=== PATIENT | male | born 1950 | race Caucasian/White ===

== ENCOUNTER 2017-07-11 04:06 | Observation (INO) | payer MEDICARE, OTHER ==
[2017-07-11] MEDS ORDERED: ASPIRIN CHEW 81 MG TABLET PO STA (04:19)
[2017-07-11 04:32] LABS: BASOPHILS % (AUTO) 0.4 %; EOSINOPHILS # (AUTO) 0.2 10^3/uL (0.0-0.7); EOSINOPHILS % (AUTO) 1.6 %; HGB - HEMOGLOBIN 14.3 g/dL (14.0-18.0); LYMPHOCYTES # (AUTO) 2.2 10^3/uL (1.5-3.5); LYMPHOCYTES % (AUTO) 21.5 %; MEAN CORPUSCULAR HEMOGLOBIN 32.6 pg (27.0-31.0); MEAN CORPUSCULAR HGB CONC 34.7 g/dL (32.0-36.0); MEAN CORPUSCULAR VOLUME 94.1 fL (80.0-94.0); MEAN PLATELET VOLUME 8.1 fL (7.4-11.4); MONOCYTES # (AUTO) 0.9 10^3/uL (0.0-1.0); MONOCYTES % (AUTO) 8.3 %; NEUTROPHILS # (AUTO) 7.1 10^3/uL (1.5-6.6); NEUTROPHILS % (AUTO) 68.2 %; PLT - PLATELET COUNT 228 10^3/uL (130-450); RED BLOOD COUNT 4.38 10^6/uL (4.70-6.10); RED CELL DISTRIBUTION WIDTH 13.8 % (12.0-15.0); WHITE BLOOD COUNT 10.3 x10^3/uL (4.8-10.8)
[2017-07-11] MEDS ORDERED: NITROGLYCERIN SL 0.4 MG TABLET SL STA (04:40)
[2017-07-11 04:41] LABS: ALBUMIN/GLOBULIN RATIO 1.4 (1.0-2.2); BILIRUBIN,TOTAL 0.3 mg/dL (0.2-1.0); CALCIUM 8.9 mg/dL (8.5-10.3); CREATININE 0.8 mg/dL (0.6-1.2); TOTAL PROTEIN 6.8 g/dL (6.7-8.2)
[2017-07-11] MEDS ORDERED: ASPIRIN CHEW 81 MG TABLET ONE (04:41)
[2017-07-11] MEDS ORDERED: NITROGLYCERIN SL 0.4 MG TABLET SL ONE ×2 (04:47)
--- NOTE | 2017-07-11 04:47 | XRAY Preliminary Report ---
Exam: XR CHEST 2 VIEW PA/LAT IMPRESSION: 1. No acute abnormality seen in the chest. [facility] SITE ID: [id number]
--- NOTE | 2017-07-11 04:50 | XRAY Report ---
EXAM: CHEST RADIOGRAPHY EXAM DATE: 07/11/2017 04:37 AM. CLINICAL HISTORY: Chest pain . COMPARISON: None. TECHNIQUE: 2 views. FINDINGS: Lungs/Pleura: No alveolar consolidation or pleural effusion. No pneumothorax. Mediastinum: Heart and mediastinal contours are unremarkable. Other: None. IMPRESSION: 1. No acute abnormality seen in the chest. [facility] Referring Provider Line: [phone] SITE ID: [id number]
--- NOTE | 2017-07-11 05:01 | ED Physician Documentation ---
PD HPI CHEST PAIN - Stated complaint Stated Complaint: CHEST PAIN - Chief complaint Chief Complaint: Cardiac - History obtained from History obtained from: Patient (pt states that he woke from sleep at approx 0200 today with retrosternal chest pressure radiating to his neck, some pain with a deep breath,, sweating, nausea. he took some baby ASA prior to arrival in the ER. is a type 1 diabetic. states he had a cardiac cath 3 years ago and wsa told it was normal. staes that at the time of my evaluation he did have some reduction in his symptoms but was not gone.) Review of Systems Constitutional: denies: Fever, Chills Nose: denies: Sinus pressure / pain Throat: denies: Sore throat Cardiac: reports: Chest pain / pressure. denies: Palpitations, Pedal edema, Calf pain Respiratory: denies: Dyspnea, Cough, Hemoptysis GI: denies: Abdominal Pain, Nausea, Vomiting, Constipation, Diarrhea : denies: Dysuria Musculoskeletal: reports: Neck pain. denies: Back pain, Extremity swelling Neurologic: denies: Generalized weakness, Confused, Headache, LOC PD PAST MEDICAL HISTORY - Past Medical History Past Medical History: Yes Endocrine/Autoimmune: Type 1 diabetes Other Past Medical History: Prostate CA; NOORVIK - Past Surgical History Past Surgical History: Yes Ortho: Knee replacement, Carpal Tunnel surgery - Present Medications Home Medications: Ambulatory Orders Medication Instructions Recorded Confirmed Amlodipine Besylate [Norvasc] 2.5 mg PO DAILY 07/11/17 07/11/17 Atorvastatin Calcium 1 tab PO DAILY 07/11/17 07/11/17 Dextroamphetamine/Amphetamine 1 tab PO DAILY 07/11/17 07/11/17 [Dextroamp-Amphet ER 10 mg Cap] Dextroamphetamine/Amphetamine 1 cap PO DAILY 07/11/17 07/11/17 [Dextroamp-Amphet ER 5 mg Cap] Insulin Lispro [Humalog] 07/11/17 Lisinopril 1 tab PO DAILY 07/11/17 07/11/17 Zolpidem Tartrate [Ambien] 1 tab PO QPM 07/11/17 07/11/17 - Allergies Allergies/Adverse Reactions: Allergies Allergy/AdvReac Type Severity Reaction Status Date / Time No Known Drug Allergies Allergy Verified 07/11/17 04:33 - Social History Does the pt smoke?: No Smoking Status: Never smoker Does the pt drink ETOH?: Yes Does the pt have substance abuse?: No - Immunizations Immunizations are current?: Yes - POLST Patient has POLST: No PD ED PE NORMAL - Vitals Vital signs reviewed: Yes - General General: Alert and oriented X 3, No acute distress, Well developed/nourished - HEENT HEENT: Atraumatic, Moist mucous membranes, Pharynx benign - Cardiac Cardiac: No murmur. No: RRR (bradycardic but regular) - Respiratory Respiratory: No respiratory distress, Clear bilaterally - Abdomen Abdomen: Soft, Non tender, Non distended - Derm Derm: Normal color, Warm and dry, No rash - Extremities Extremities: No deformity, No edema, No calf tenderness / cord - Neuro Neuro: Alert and oriented X 3 Eye Opening: Spontaneous Motor: Obeys Commands Verbal: Oriented GCS Score: 15 - Psych Psych: Normal mood, Normal affect Results - Vitals Vitals: Vital Signs - 24 hr 07/11/17 07/11/17 07/11/17 04:11 04:12 04:25 Temperature 35.9 C L Heart Rate 52 L 54 L Respiratory 16 12 Rate Blood Pressure 129/79 119/61 Blood Pressure 133/67 H [Left] Blood Pressure 127/68 [Right] O2 Saturation 98 99 07/11/17 07/11/17 07/11/17 04:37 04:43 04:49 Temperature Heart Rate 53 L 56 L 59 L Respiratory 12 14 17 Rate Blood Pressure 133/67 H 127/68 110/56 L Blood Pressure [Left] Blood Pressure [Right] O2 Saturation 100 100 98 07/11/17 04:55 Temperature Heart Rate 70 Respiratory 14 Rate Blood Pressure 122/61 Blood Pressure [Left] Blood Pressure [Right] O2 Saturation 98 Oxygen O2 Source Room air - EKG (time done) 0411 Rate: Rate (enter#) Rhythm: Sinus bradycardia [place]: Normal Intervals: Normal MS, QRS normal QRS: Normal Ischemia: Non specific changes - Labs Labs: Laboratory Tests 07/11/17 07/11/17 07/11/17 04:15 04:15 04:15 WBC 10.3 RBC 4.38 L Hgb 14.3 Hct 41.2 L MCV 94.1 H MCH 32.6 H MCHC 34.7 RDW 13.8 Plt Count 228 MPV 8.1 Neut # 7.1 H Lymph # 2.2 [place] # 0.9 Eos # 0.2 Baso # 0.0 Absolute Nucleated RBC 0.00 Nucleated RBC % 0.0 Sodium 139 Potassium 3.7 Chloride 100 L Carbon Dioxide 30 Anion Gap 9.0 BUN 22 H Creatinine 0.8 Estimated GFR (MDRD) 97 Glucose 133 H POC Whole Bld Glucose Calcium 8.9 Total Bilirubin 0.3 AST 27 ALT 35 Alkaline Phosphatase 39 L Troponin I < 0.04 Total Protein 6.8 Albumin 4.0 Globulin 2.8 Albumin/Globulin Ratio 1.4 Lipase 33 07/11/17 04:21 WBC RBC Hgb Hct MCV MCH MCHC RDW Plt Count MPV Neut # Lymph # [place] # Eos # Baso # Absolute Nucleated RBC Nucleated RBC % Sodium Potassium Chloride Carbon Dioxide Anion Gap BUN Creatinine Estimated GFR (MDRD) Glucose POC Whole Bld Glucose 126 H Calcium Total Bilirubin AST ALT Alkaline Phosphatase Troponin I Total Protein Albumin Globulin Albumin/Globulin Ratio Lipase - Rads (name of study) CXR Radiology: Final report received (No acute disease), EMP read contemporaneously PD MEDICAL DECISION MAKING - ED course Complexity details: reviewed results, re-evaluated patient, considered differential, d/w patient ED course: pt is a type 1 diabetic with chest pressure that is somewhat resolved with nitro. normal BP. has slight ST elevations in V1 Avl and V5, V6 but does not meet STEMi criteria. no t wave inversions. Pain somewhat relieved with nitro. CXR neg. secondary to his concerning presenting symptoms and DM history will admit to observation for further trending and testing. informed pt of the plan and he agrees. Departure - Departure Disposition: ED Place in Observation Clinical Impression: Chest pain, DM (diabetes mellitus) Condition: Stable
[2017-07-11] MEDS ORDERED: IBUPROFEN 400 MG TABLET PO PRN (05:25)
[2017-07-11] MEDS ORDERED: PROCHLORPERAZINE 10 MG/2 ML VIAL IVP PRN (05:25)
[2017-07-11] MEDS ORDERED: SODIUM CHLORIDE FLUSH 0.9% 10 ML SYRINGE IVP PRN (05:25)
[2017-07-11] MEDS ORDERED: NITROGLYCERIN SL 0.4 MG TABLET SL PRN (05:30)
--- NOTE | 2017-07-11 05:39 | HISTORY & PHYSICAL EXAMINATION ---
Chief Complaint - Chief Complaint Chief Complaint: Chest Pressure/fullness History of Present Illness - Admitted From Admitted From:: Home - History of Present Illness HPI Comment/Other: Mr. Evan Bailon is a 66-year-old male with a history of Insulin-dependent diabetes, hypertension, and hypercholesterolemia. He woke up at 2 AM this morning with chest fullness and pressure but no pain. After about an hour he decided to come into the [facility] emergency department for evaluation and treatment. He denies any chest pain, diaphoresis, or radiation at this time. History - Past Medical History Cardiovascular: reports: Hypertension, High cholesterol Respiratory: reports: None Neuro: reports: None Endocrine/Autoimmune: reports: Type 1 diabetes GI: reports: None [employer]: reports: None : reports: Other (History of prostate cancer, status post prostatectomy) HEENT: reports: Chronic hearing loss Psych: reports: ADD/ADHD Musculoskeletal: reports: None Derm: reports: None MRSA Hx?: No Other Past Medical History: Prostate CA; KALTAG - Past Surgical History Ortho: reports: Knee replacement, Carpal Tunnel surgery Other past surgical history: Status post prostatectomy - Family & Social History Family History: Mother: , CAD, Hyperlipidemia, Hypertension, Father: , CAD, Hyperlipidemia, Hypertension, Sister: Alive and Well, Cancer ( breast), Diabetes, Type 1 Living arrangement: At home Living Situation: With spouse/s.o. - Substance History Use: Uses substance without health or social issues: Alcohol Abuse: Recurrent use of substance despite neg consequences: NONE - POLST Patient has POLST: No POLST Status: Full Code (Patient quit smoking 20 years ago) Meds/Allgy - Home Medications Home Medications: Ambulatory Orders Medication Instructions Recorded Confirmed Amlodipine Besylate [Norvasc] 2.5 mg PO DAILY 07/11/17 07/11/17 Atorvastatin Calcium 1 tab PO DAILY 07/11/17 07/11/17 Dextroamphetamine/Amphetamine 1 tab PO DAILY 07/11/17 07/11/17 [Dextroamp-Amphet ER 10 mg Cap] Dextroamphetamine/Amphetamine 1 cap PO DAILY 07/11/17 07/11/17 [Dextroamp-Amphet ER 5 mg Cap] Insulin Lispro [Humalog] 07/11/17 Lisinopril 1 tab PO DAILY 07/11/17 07/11/17 Zolpidem Tartrate [Ambien] 1 tab PO QPM 07/11/17 07/11/17 - Allergies Allergies/Adverse Reactions: Allergies Allergy/AdvReac Type Severity Reaction Status Date / Time No Known Drug Allergies Allergy Verified 07/11/17 04:33 Review of Systems - Constitutional Constitutional: denies: Fatigue, Fever, Chills, Weakness - Eyes Eyes: denies: Pain, Irritation, Blurred vision - Ears, Nose & Throat Ears, Nose & Throat: denies: Ear pain, Hearing loss, Hearing aids, Tinnitus, Vertigo, Nasal discharge, Nosebleeds - Cardiovascular Cariovascular: reports: Other (Chest pressure, chest fullness). denies: Palpitations, Chest pain, Edema - Respiratory Respiratory: denies: Cough, Sputum production, Wheezing, Snoring - Gastrointestinal Gastrointestinal: denies: Abdominal pain, Abdominal distention, Constipation, Diarrhea, Change in bowel habits, Rectal bleeding - Genitourinary Genitourinary: denies: Dysuria, Frequency, Urgency, Hematuria - Musculoskeletal Musculoskeletal: denies: Muscle pain, Back pain, Muscle aches, Stiffness, Joint pain - Integumentary Integumentary: denies: Rash, Pruritis, Lesions, Dryness - Neurological Neurological: denies: General weakness, Headache, Dizziness, Numbness - Psychiatric Psychiatric: denies: Depression, Anxiety, Hallucinations - Endocrine Endocrine: denies: Polyuria, Polydypsia, Polyphagia - Hematologic/Lymphatic Hematologic/Lymphatic: denies: Anemia, Bruising, Petechiae, Lymphadenopathy - All Other Systems All Other Systems: reports: Reviewed and negative Exam - Vital Signs Reviewed Vital Signs: Yes Vital Signs: Vital Signs x48h Temp Pulse Resp BP BP BP Pulse Ox 07/11/17 05:14 66 16 114/60 99 07/11/17 05:05 62 12 114/60 98 07/11/17 05:00 61 14 115/60 100 07/11/17 04:55 70 14 122/61 98 07/11/17 04:49 59 L 17 110/56 L 98 07/11/17 04:43 56 L 14 127/68 100 07/11/17 04:37 53 L 12 133/67 H 100 07/11/17 04:25 54 L 12 119/61 99 07/11/17 04:12 133/67 H 127/68 12/27/17 04:11 35.9 C L 52 L 16 129/79 98 - Physical Exam General Appearance: positive: No acute distress, Alert, Anxious Eyes Bilateral: positive: Normal inspection, PERRL, EOMI, Conjunctivae nml, No scleral icterus ENT: positive: ENT inspection nml, Pharynx nml, No signs of dehydration. negative: Oral lesions Neck: positive: Nml inspection, Thyroid nml, No JVD, Trachea midline. negative : Thyromegaly Respiratory: positive: Chest non-tender, No respiratory distress, Breath sounds nml. negative: Wheezes, Rales, Rhonchi Cardiovascular: positive: Regular rate & rhythm, No murmur, No gallop. negative : Systolic murmur, Diastolic murmur Peripheral Pulses: positive: 1+ Abdomen: positive: Non-tender, No organomegaly, Nml bowel sounds, No distention Back: positive: Nml inspection. negative: CVA tenderness (R), CVA tenderness (L ) Skin: positive: Color nml, No rash, Warm, Dry. negative: Cyanosis Extremities: positive: Non-tender, Full ROM, Nml appearance, No pedal edema Neurologic/Psychiatric: positive: Oriented x3, CN's nml (2-12), Motor nml, Sensation nml, Mood/affect nml Conclusion/Plan - Problem List (1) DM (diabetes mellitus) Conclusion/Plan: We will continue the patient on his home insulin regimen with sliding scale coverage. Qualifiers: Diabetes mellitus type: type 1 Diabetes mellitus complication status: without complication Qualified Code(s): E10.9 - Type 1 diabetes mellitus without complications (2) Chest pain Conclusion/Plan: Patient denies any true pain and says he has had "pressure and fullness". We will continue the next 2 sets of serial troponins, first set was negative.Will administer nitrates as needed for the chest pressure. We will consider stress testing. Qualifiers: Chest pain type: other chest pain Qualified Code(s): R07.89 - Other chest pain; R07.8 - Other chest pain - Lab Results Lab results reviewed: Yes Fish Bones: 07/11/17 04:15 07/11/17 04:15 - EKG Results EKG Interpreted Independently: Yes EKG Comparison: No prior EKG EKG Findings: Questionable inferior wall ischemia Issues/Core Measures - Anticipated LOS Anticipated Stay Length: Less than 2 midnights - [facility] Requirement for [facility] I expect patient to be DC'd or transferred within 96 hours.: Yes - DVT/VTE - Prophylaxis VTE/DVT Device ordered at admit?: Yes - AMI - Statin at Admit Aspirin Prescribed on Admit: Yes
[2017-07-11] MEDS: SODIUM CHLORIDE FLUSH 0.9% 10 ML SYRINGE IVP SCH ×3 (06:37→21:14)
[2017-07-11 07:03] LABS: CALCIUM 8.7 mg/dL (8.5-10.3); CREATININE 0.9 mg/dL (0.6-1.2)
[2017-07-11 07:11] LABS: CHOL/HDL RATIO 2.2 (<5.0); CHOLESTEROL 140 mg/dL; HDL CHOLESTEROL 64 mg/dL; LDL CHOLESTEROL,CALCULATED 68 mg/dL; LDL/HDL RATIO 1.1 (<3.6); VLDL CHOLESTEROL 8 mg/dL
[2017-07-11] MEDS: amLODIPine 5 MG TABLET PO SCH (08:42)
[2017-07-11] MEDS: ATORVASTATIN 40 MG TABLET PO SCH (08:42)
[2017-07-11] MEDS: ASPIRIN CHEW 81 MG TABLET PO SCH (08:42)
[2017-07-11] MEDS: POLYETHYLENE GLYCOL 3350 17 GM PACKET PO SCH (08:43)
[2017-07-11] MEDS: LISINOPRIL 20 MG TABLET PO SCH (08:43)
[2017-07-11] MEDS ORDERED: DEXTROAMPHETAMINE PO SCH ×2 (09:00)
[2017-07-11] MEDS ORDERED: AMPHETAMINE PO SCH ×2 (09:00)
[2017-07-11] MEDS ORDERED: INSULIN LISPRO 100 UNIT/1 ML 10 ML MDV SUBQ SCH ×2 (11:00→13:00)
--- NOTE | 2017-07-11 19:05 | PROVIDER PROGRESS NOTE ---
Hospitalist Cross-cover Note - Cross-Cover Note Cross-Cover Note: I examined the patient and reviewed all of his test results with him and his fiance at bedside today. Vital signs stable. The exam is unremarkable with no audible ectopy or heart murmur, chest clear, no rub is heard. Troponins are not detectable 3. Telemetry shows sinus rhythm with frequent unifocal PVCs. The patient repeated his symptoms for me: He gets skips and jumps in his rhythm and then associated chest pressure that starts in the anterior chest and rises to his neck.Taking a deep breath produces a "catch" in the inspiration. These symptoms have been coming and going all day.He then states that he has had these symptoms for 10 years and they have come and gone, but are most noticeable when he is "under stress". He is currently under stress. He is not sure if sitting upright improves the symptoms but he does note that they are worse after eating especially after a late meal and they are not present when he is active such as walking or doing aerobic activities. 3 years ago the patient underwent a coronary angiogram and this was within normal limits.Prior to that he had a Holter monitor which showed "funky beats" and he was never told his diagnosis. Imp/Dx: 1) Atypical chest pain for angina given that it is only associated with ectopy, never occurs with aerobic exercise and he has had a normal coronary angiogram just 3 years ago 2) Palpitations which correlate with PVCs on telemetry. 3) DM on Insulin 4) ADHD 5) HTN on treatment. 6) Hyperlipidemia on treatment with good control. Plan: Obtain an echocardiogram to rule out pericarditis given that his symptoms occur in a supine position. Start a beta-suzanne for suppression of his very symptomatic PVCs and continue to observe on Telemetry. Start an H2 suzanne/PPI since the chest pressure and "catch" could also be GERD. Patient is agreeable to this plan
[2017-07-11] MEDS ORDERED: METOPROLOL SUCCINATE 25 MG TABLET PO SCH (21:00)
[2017-07-11] MEDS: FAMOTIDINE 20 MG TABLET PO SCH (21:14)
[2017-07-12] MEDS: SODIUM CHLORIDE FLUSH 0.9% 10 ML SYRINGE IVP SCH (05:04)
[2017-07-12 07:01] LABS: THYROID STIMULATING HORMONE 1.24 uIU/mL (0.34-5.60)
[2017-07-12 07:03] LABS: FREE T4 (FREE THYROXINE) 0.77 ng/dL (0.58-1.64)
[2017-07-12] MEDS: ATORVASTATIN 40 MG TABLET PO SCH (08:53)
[2017-07-12] MEDS: amLODIPine 5 MG TABLET PO SCH (08:53)
[2017-07-12] MEDS: LISINOPRIL 20 MG TABLET PO SCH (08:53)
[2017-07-12] MEDS: POLYETHYLENE GLYCOL 3350 17 GM PACKET PO SCH (08:54)
[2017-07-12] MEDS: FAMOTIDINE 20 MG TABLET PO SCH (08:54)
[2017-07-12] MEDS: ASPIRIN CHEW 81 MG TABLET PO SCH (08:54)
--- NOTE | 2017-07-12 09:29 | Discharge Plan ---
Discharge Plan Disposition: Home, Self Care Condition: Fair Prescriptions: Metoprolol Succinate [Toprol Xl] 12.5 mg PO DAILY #30 tablet Diet: Diabetic Activity Restrictions: No Restrictions Shower Restrictions: No Driving Restrictions: No Instruction Topics: Heart Palpitations Additional Instructions or Follow Up instructions: Resume all your medications. Start taking new Toprol XL at dinnertime. See your PCP or Automotive Engineering Technician for follow-up and further management of these symptoms. Have a Happy New Year! No Smoking: If you smoke, Please STOP! Call for help. Follow-up with: Sarah Guevara MD [Primary Care Provider] -
[2017-07-12 10:37] VITALS: BP 136/65
--- NOTE | 2017-07-17 09:21 | DISCHARGE SUMMARY ---
DATE OF SERVICE: 07/12/2017 Physician: Francie Jones MD HISTORY OF PRESENT ILLNESS: This is a 66-year-old white male with history of insulin-dependent diabetes, hypertension, hyperlipidemia, with a history of palpitations. He was told that he has "funky beats" but he was never told his actual medical diagnosis regarding his palpitations. The patient presented with worsening palpitations associated with chest pressure in the supine position and no other associated symptoms. He was placed in observation for a rule out protocol. HOSPITAL COURSE AND DISCHARGE DIAGNOSES 1. Atypical chest pain. The patient had troponins that were normal x3. He described that his episodes of chest pressure lasted very briefly and were only associated with his other symptoms of ectopy, and that they never occurred with aerobic exercise. The patient does compete in table tennis without any complaints of chest pain or shortness of breath. The patient describes having a coronary angiogram 3 years ago because of symptoms such as this and was told that he had completely normal coronary arteries. This description was atypical for angina and the plan was to correlate his complaints of palpitations with his rhythm and treat the dysrhythmia for improvement of his chest discomfort. 2. Palpitations. The patient stated that he was having these coming and going during the entire day that he was here and did not call his nurse. He states that they have been more noticeable when he is "under stress" which he is currently under. They do improve by sitting upright, and it may be worse after eating something, especially a late meal before bed. Review of telemetry showed frequent unifocal PVCs that were occurring about 6 per minute. He was started on a beta-suzanne and overnight these decreased approximately 50% to 75%, and he did in fact notice that there were no significant episodes of "palpitations" or chest pressure overnight. He was therefore discharged on his new beta-suzanne and recommended to have followup with his financial coordinator. The patient had an echocardiogram while here that showed mild LVH , EF of 55% to 60% with grade 1 diastolic dysfunction, normal RV size and function, normal atrial sizes, normal valvular function. 3. Premature ventricular contractions. Labs showed normal potassium 3.8, normal troponins x3, normal T4, T3, and TSH. 4. Diabetes. The patient was maintained on his diabetic diet and medications throughout this course. 5. Attention deficit hyperactivity disorder by history. The patient was maintained on his medication during this course without any trouble. LABORATORY AND IMAGING: Reviewed and summarized above. ALLERGIES: NONE. MEDICATIONS AT THE TIME OF DISCHARGE 1. Amlodipine 2.5 mg daily. 2. Lipitor 80 mg q.p.m. 2. Dextromethorphan 10 mg p.o. b.i.d. 3. Zenzedi 15 mg p.o. daily. 4. Insulin Humalog via insulin pump that he adjusts on his own. 5. Lisinopril 40 mg p.o. daily. 6. Toprol-XL 12.5 mg p.o. at dinnertime (new prescription medication). 7. Ambien at bedtime p.r.n. STATUS AT THE TIME OF DISCHARGE: Stable. PHYSICAL EXAMINATION VITAL SIGNS: Blood pressure 136/65, pulse of 64 in sinus rhythm, afebrile, oxygen saturation 98%. HEENT: Unremarkable. NECK: No JVD or carotid bruits. CHEST: Clear. HEART: Sounds normal. No murmur. ABDOMEN: Soft. EXTREMITIES: Without edema. NEUROLOGIC: Intact. FOLLOWUP: With his financial coordinator and PCP. CODE STATUS: FULL CODE. TIME REQUIRED TO COMPLETE THIS ENTIRE DISCHARGE: 30 minutes. TD: 07/16/2017 17:14 [email or web address]
== END 2017-07-12 11:00 | disposition home or self-care (01) ==
LOC: ED 04:06 → OBS 05:25
PROVIDERS: ADMIT Hospitalist; ATTEND Internal Medicine
DX: R07.89 Other chest pain (principal); E10.9 Type 1 diabetes mellitus without complications; Z96.41 Presence of insulin pump (external) (internal); I11.9 Hypertensive heart disease without heart failure; I49.3 Ventricular premature depolarization; E78.5 Hyperlipidemia, unspecified; H91.90 Unspecified hearing loss, unspecified ear; F90.9 Attention-deficit hyperactivity disorder, unspecified type; Z85.46 Personal history of malignant neoplasm of prostate; Z90.79 Acquired absence of other genital organ(s); Z96.659 Presence of unspecified artificial knee joint; Z87.891 Personal history of nicotine dependence; R11.0 Nausea
CPT/HCPCS: 36415; 71020; 80048; 80053; 80061; 83690; 83880; 84439; 84443; 84481; 84484; 85025; 93005; 93306; 99284; 99285; A9270; G0378

== ENCOUNTER 2018-03-13 22:15 | Emergency (ER) | payer MEDICARE, BC ==
[2018-03-13 22:50] LABS: BASOPHILS % (AUTO) 0.4 %; EOSINOPHILS # (AUTO) 0.1 10^3/uL (0.0-0.7); EOSINOPHILS % (AUTO) 0.8 %; HGB - HEMOGLOBIN 13.9 g/dL (14.0-18.0); LYMPHOCYTES # (AUTO) 1.5 10^3/uL (1.5-3.5); MEAN CORPUSCULAR HEMOGLOBIN 32.8 pg (27.0-31.0); MEAN CORPUSCULAR VOLUME 96.5 fL (80.0-94.0); MEAN PLATELET VOLUME 7.9 fL (7.4-11.4); MONOCYTES # (AUTO) 0.4 10^3/uL (0.0-1.0); MONOCYTES % (AUTO) 5.3 %; NEUTROPHILS # (AUTO) 6.4 10^3/uL (1.5-6.6); NEUTROPHILS % (AUTO) 75.5 %; PLT - PLATELET COUNT 211 10^3/uL (130-450); RED BLOOD COUNT 4.23 10^6/uL (4.70-6.10); RED CELL DISTRIBUTION WIDTH 13.8 % (12.0-15.0); WHITE BLOOD COUNT 8.5 x10^3/uL (4.8-10.8)
[2018-03-13 23:06] LABS: ALBUMIN 3.9 g/dL (3.2-5.5); ALBUMIN/GLOBULIN RATIO 1.3 (1.0-2.2); BILIRUBIN,TOTAL 0.7 mg/dL (0.2-1.0); CALCIUM 8.8 mg/dL (8.5-10.3); TOTAL PROTEIN 6.8 g/dL (6.7-8.2)
[2018-03-13 23:21] LABS: BILIRUBIN,URINE NEGATIVE (NEGATIVE); GLUCOSE, URINE (UA) NEGATIVE (NEGATIVE); KETONES,URINE (UA) TRACE mg/dL (NEGATIVE); LEUKOCYTE ESTERASE, URINE NEGATIVE (NEGATIVE); NITRITE,URINE NEGATIVE (NEGATIVE); OCCULT BLOOD,URINE NEGATIVE (NEGATIVE); PROTEIN,URINE NEGATIVE (NEGATIVE); UROBILINOGEN,URINE 0.2 (NORMAL) E.U./dL (NORMAL)
[2018-03-13 23:22] LABS: CLARITY,URINE CLEAR (CLEAR)
[2018-03-14] MEDS ORDERED: ONDANSETRON ODT 4 MG TABLET TL STA (00:28)
[2018-03-14] MEDS ORDERED: LIDOCAINE VISCOUS 2% 15 ML UDC MM STA ×2 (00:28→02:05)
[2018-03-14] MEDS ORDERED: MAG HYDROX/AL HYDROX/SIMETH 30 ML UDC PO STA (00:43)
[2018-03-14 00:48] VITALS: BP 157/60
--- NOTE | 2018-03-14 01:13 | ED Physician Documentation ---
PD HPI ABD PAIN - Stated complaint Stated Complaint: ABD PX - Chief complaint Chief Complaint: Abd Pain - History obtained from History obtained from: Patient, Family - History of Present Illness Timing - onset: Today Timing - details: Abrupt onset, Still present Quality: Sharp Location: Epigastric Associated symptoms: Nausea. No: Fever, Vomiting, Chest pain, Dizzy Similar symptoms before: No diagnosis Recently seen: Not recently seen - Additional information Additional information: Patient is a 67 year old male who is presenting to the emergency department for epigastric pain. patient states that the pain started about 5 hours ago. patient tried taking a riboxican on an empty stomach and subsequently developed epigastric burning with some radiation below his sternum. patient states that he tried taking pepcid and pepto bismol with little relief. 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 : None, Other HEENT: Chronic hearing loss Psych: ADD/ADHD Musculoskeletal: None Derm: None - Past Surgical History Past Surgical History: Yes Ortho: Knee replacement, Carpal Tunnel surgery - Present Medications Home Medications: Ambulatory Orders Medication Instructions Recorded Confirmed Amlodipine Besylate [Norvasc] 2.5 mg PO DAILY 07/11/17 07/11/17 Atorvastatin Calcium 80 mg PO QPM 07/11/17 07/11/17 Dextroamphetamine Sulfate 10 mg PO BID 07/11/17 07/11/17 [Dextroamphetamine Sulfate ER] Dextroamphetamine Sulfate [Zenzedi] 5 mg PO .AFTERNOON 07/11/17 07/11/17 Dextroamphetamine Sulfate [Zenzedi] 15 mg PO DAILY 07/11/17 07/11/17 Insulin Lispro [Humalog] 0 units SUBQ .INSULINPUMP 07/11/17 07/11/17 Lisinopril 40 mg PO DAILY 07/11/17 07/11/17 Zolpidem Tartrate [Ambien Cr] 6.25 mg PO QPM PRN 07/11/17 07/11/17 Lidocaine Viscous 2% [Xylocaine 5 ml MM Q4H #100 ml 03/14/18 Viscous 2%] - Allergies Allergies/Adverse Reactions: Allergies Allergy/AdvReac Type Severity Reaction Status Date / Time No Known Drug Allergies Allergy Verified 03/13/18 22:20 - Social History Does the pt smoke?: No Smoking Status: Former smoker Does the pt drink ETOH?: Yes Does the pt have substance abuse?: No - Immunizations Immunizations are current?: Yes - POLST Patient has POLST: No POLST Status: Full Code (Patient quit smoking 20 years ago) PD ED PE NORMAL - Vitals Vital signs reviewed: Yes - General General: Well developed/nourished - HEENT HEENT: Atraumatic - Neck Neck: No JVD - Cardiac Cardiac: No murmur - Respiratory Respiratory: No respiratory distress, Clear bilaterally - Abdomen Abdomen: Soft - Derm Derm: Normal color, Warm and dry - Extremities Extremities: No deformity, No edema - Neuro Neuro: Alert and oriented X 3, No motor deficit, Normal speech Eye Opening: Spontaneous PD ED PE EXPANDED - General General: Alert, In Pain - Cardiac Cardiac: [place] - Abdomen Abdomen: Tender to palpation, Epigastric Results - Vitals Vitals: Vital Signs - 24 hr 03/13/18 03/14/18 03/14/18 22:18 00:10 00:47 Temperature 35.4 C L Heart Rate 47 L 63 62 Respiratory 22 16 15 Rate Blood Pressure 177/67 H 149/46 H 157/60 H O2 Saturation 100 98 97 Oxygen O2 Source Room air - EKG (time done) 2231 Rate: Rate (enter#) (46) Rhythm: Sinus bradycardia [place]: Normal Intervals: Normal MI QRS: Normal Compare to prior EKG: Unchanged from prior EKG - Labs Labs: Laboratory Tests 03/13/18 03/13/18 03/13/18 22:23 22:47 22:47 WBC 8.5 RBC 4.23 L Hgb 13.9 L Hct 40.8 L MCV 96.5 H MCH 32.8 H MCHC 34.0 RDW 13.8 Plt Count 211 MPV 7.9 Neut # (Auto) 6.4 Lymph # (Auto) 1.5 [place] # (Auto) 0.4 Eos # (Auto) 0.1 Baso # (Auto) 0.0 Absolute Nucleated RBC 0.01 Nucleated RBC % 0.1 D-Dimer < 200.0 L Sodium 138 Potassium 4.0 Chloride 102 Carbon Dioxide 28 Anion Gap 8.0 BUN 22 H Creatinine 1.0 Estimated GFR (MDRD) 75 L Glucose 175 H Calcium 8.8 Total Bilirubin 0.7 AST 28 ALT 35 Alkaline Phosphatase 40 L Total Protein 6.8 Albumin 3.9 Globulin 2.9 Albumin/Globulin Ratio 1.3 Lipase 26 Urine Color Urine Clarity Urine pH Ur Specific [place] Urine Protein Urine Glucose (UA) Urine Ketones Urine Occult Blood Urine Nitrite Urine Bilirubin Urine Urobilinogen Ur Leukocyte Esterase Ur Microscopic Review Urine Culture Comments 03/13/18 23:16 WBC RBC Hgb Hct MCV MCH MCHC RDW Plt Count MPV Neut # (Auto) Lymph # (Auto) [place] # (Auto) Eos # (Auto) Baso # (Auto) Absolute Nucleated RBC Nucleated RBC % D-Dimer Sodium Potassium Chloride Carbon Dioxide Anion Gap BUN Creatinine Estimated GFR (MDRD) Glucose Calcium Total Bilirubin AST ALT Alkaline Phosphatase Total Protein Albumin Globulin Albumin/Globulin Ratio Lipase Urine Color YELLOW Urine Clarity CLEAR Urine pH 7.0 Ur Specific [place] 1.020 Urine Protein NEGATIVE Urine Glucose (UA) NEGATIVE Urine Ketones TRACE Urine Occult Blood NEGATIVE Urine Nitrite NEGATIVE Urine Bilirubin NEGATIVE Urine Urobilinogen 0.2 (NORMAL) Ur Leukocyte Esterase NEGATIVE Ur Microscopic Review NOT INDICATED Urine Culture Comments NOT INDICATED - Rads (name of study) chest x-ray Radiology: Final report received (normal) PD MEDICAL DECISION MAKING - ED course Complexity details: reviewed old records, reviewed results, re-evaluated patient , considered differential, d/w patient, d/w family ED course: Patient was seen and examined at bedside. blood work had already been performed as well as ekg. patient's ekg was unchanged compared to previous. patient was treated with maalox with viscous lidocaine. patient had a few episodes of bradycardia so chest x-ray and d-dimer were ordered to rule out dissection. those two tests were normal. Patient was given detailed discharge and follow up instructions and was stable for outpatient follow up. - Sepsis Event Vital Signs: Vital Signs - 24 hr 03/13/18 03/14/18 03/14/18 22:18 00:10 00:47 Temperature 35.4 C L Heart Rate 47 L 63 62 Respiratory 22 16 15 Rate Blood Pressure 177/67 H 149/46 H 157/60 H O2 Saturation 100 98 97 Oxygen O2 Source Room air Departure - Departure Disposition: 01 Home, Self Care Clinical Impression: Gastritis Condition: Good Instructions: ED Gastritis Follow-Up: Sarah Guevara MD [Primary Care Provider] - Prescriptions: Lidocaine Viscous 2% [Xylocaine Viscous 2%] 5 ml MM Q4H #100 ml Comments: Your diagnostics today were within normal limits. You should continue with the pepcid and maalox. you should avoid pills on an empty stomach. You should also avoid spicey foods, acidic foods, coffee and alcohol as they can exacerbate your symptoms. Your heart rate was a bit low at times on the monitor and you should follow up with your primary care doctor for possibly a holter monitor. You may return to the emergency department at any time for new , worsening or uncontrollable symptoms.
--- NOTE | 2018-03-14 01:44 | XRAY Report ---
Reason: epigastric pain Procedure Date: 03/14/2018 Accession Number: [id number] / [id number] Procedure: XR - Chest 1 View X-Ray CPT Code: 37281 FULL RESULT: EXAM: CHEST RADIOGRAPHY EXAM DATE: 03/14/2018 01:31 AM. CLINICAL HISTORY: Epigastric pain. COMPARISON: 07/11/2017. TECHNIQUE: 1 view. FINDINGS: Lungs/Pleura: No alveolar consolidation or pleural effusion seen. No pneumothorax. Mediastinum: Within exam limitations, the cardiomediastinal contour is normal. Other: None. IMPRESSION: 1. No acute abnormality seen in the chest. RADIA
== END 2018-03-14 02:15 | disposition home or self-care (01) ==
LOC: ED 22:15
DX: K29.70 Gastritis, unspecified, without bleeding (principal); R00.1 Bradycardia, unspecified; E10.9 Type 1 diabetes mellitus without complications; E78.00 Pure hypercholesterolemia, unspecified; I10 Essential (primary) hypertension; Z87.891 Personal history of nicotine dependence; Z96.659 Presence of unspecified artificial knee joint
CPT/HCPCS: 36415; 71045; 80053; 81003; 83690; 85025; 85379; 93005; 99283; 99284; A9270; Q0162; 81001; 87086

== ENCOUNTER 2018-03-14 15:41 | Outpatient (CLI) | payer MEDICARE, BC | END 2018-03-14 15:42 | disposition critical access hospital (66) | LOC: EMS 15:41 | PROVIDERS: ATTEND Surgery | DX: R10.9 Unspecified abdominal pain (principal) | CPT/HCPCS: A0425; A0429 ==

== ENCOUNTER 2018-03-14 16:15 | Emergency (ER) | payer MEDICARE, BC ==
--- NOTE | 2018-03-14 16:30 | ED Physician Documentation ---
History of Present Illness - Stated complaint Stated Complaint: ABD PX - Chief complaint Chief Complaint: Abd Pain - Additonal information Additional information: hx from pt 67 male awoke this AM with RLQ pain which has worsened throughout the day no fever no NVD no urinary sx s/p prostatectomy but no other surgery Review of Systems Constitutional: denies: Fever, Chills Cardiac: denies: Chest pain / pressure Respiratory: denies: Dyspnea GI: reports: Abdominal Pain. denies: Nausea, Vomiting, Diarrhea : denies: Dysuria Immunocompromised: denies: Immunocompromised PD PAST MEDICAL HISTORY - Past Medical History Cardiovascular: Hypertension, High cholesterol, Arrhythmia Respiratory: None Endocrine/Autoimmune: Type 1 diabetes GI: None GAMING WORKER: None : None, Other HEENT: Chronic hearing loss Psych: ADD/ADHD Musculoskeletal: None Derm: None - Past Surgical History Past Surgical History: Yes Ortho: Knee replacement, Carpal Tunnel surgery - Present Medications Home Medications: Ambulatory Orders Medication Instructions Recorded Confirmed Amlodipine Besylate [Norvasc] 2.5 mg PO DAILY 07/11/17 07/11/17 Atorvastatin Calcium 80 mg PO QPM 07/11/17 07/11/17 Dextroamphetamine Sulfate 10 mg PO BID 07/11/17 07/11/17 [Dextroamphetamine Sulfate ER] Dextroamphetamine Sulfate [Zenzedi] 5 mg PO .AFTERNOON 07/11/17 07/11/17 Dextroamphetamine Sulfate [Zenzedi] 15 mg PO DAILY 07/11/17 07/11/17 Insulin Lispro [Humalog] 0 units SUBQ .INSULINPUMP 07/11/17 07/11/17 Lisinopril 40 mg PO DAILY 07/11/17 07/11/17 Zolpidem Tartrate [Ambien Cr] 6.25 mg PO QPM PRN 07/11/17 07/11/17 Amox/Clav 875/125 [Augmentin] 1 each PO Q12H #20 tablet 03/14/18 Lidocaine Viscous 2% [Xylocaine 5 ml MM Q4H #100 ml 03/14/18 Viscous 2%] oxyCODONE [Roxicodone] 5 mg PO Q6H #10 tablet 03/14/18 - Allergies Allergies/Adverse Reactions: Allergies Allergy/AdvReac Type Severity Reaction Status Date / Time No Known Drug Allergies Allergy Verified 03/14/18 16:21 - Social History Does the pt smoke?: No Smoking Status: Former smoker Does the pt drink ETOH?: Yes Does the pt have substance abuse?: No - Immunizations Immunizations are current?: Yes - POLST Patient has POLST: No POLST Status: Full Code (Patient quit smoking 20 years ago) PD ED PE NORMAL - Vitals Vital signs reviewed: Yes - Neck Neck: Supple, no meningeal sign - Cardiac Cardiac: RRR - Respiratory Respiratory: No respiratory distress - Abdomen Abdomen: Soft, Other (TTP RLQ little higher and lateral to mcburneys with + rebound rovsing and heel tap) - Derm Derm: Normal color - Neuro Neuro: Alert and oriented X 3 Results - Vitals Vitals: Vital Signs - 24 hr 03/14/18 03/14/18 16:18 18:29 Temperature 37 C 37.2 C Heart Rate 69 69 Respiratory 20 16 Rate Blood Pressure 126/59 L 125/62 O2 Saturation 97 98 Oxygen O2 Source Room air - Labs Labs: Laboratory Tests 03/14/18 03/14/18 17:04 17:04 WBC 12.0 H RBC 4.39 L Hgb 14.5 Hct 42.3 MCV 96.2 H MCH 33.1 H MCHC 34.4 RDW 13.5 Plt Count 187 MPV 8.5 Neut # (Auto) 10.1 H Lymph # (Auto) 0.9 L [place] # (Auto) 0.9 Eos # (Auto) 0.0 Baso # (Auto) 0.0 Absolute Nucleated RBC 0.01 Nucleated RBC % 0.1 Sodium 133 L Potassium 4.3 Chloride 99 L Carbon Dioxide 25 Anion Gap 9.0 BUN 13 Creatinine 0.9 Estimated GFR (MDRD) 85 L Glucose 267 H Calcium 8.9 Total Bilirubin 1.3 H AST 23 ALT 32 Alkaline Phosphatase 38 L Total Protein 6.8 Albumin 3.9 Globulin 2.9 Albumin/Globulin Ratio 1.3 Lipase 20 L - Rads (name of study) CT AP Radiology: See rad report (nl appendix, GB appears distended with irrge wall concerning for acute juno, coorelate clincially consider sono, no biliary duct dilittaion, possible ileus but not SBO) PD MEDICAL DECISION MAKING - ED course ED course: no appy but possible acute juno on CT GB is quite low and lateral and would fit with clinical sx elev WBC and bili too this is the likely cause of sx pt is feeling better with ofirmev, no pain at rest now just with palp I explained finding with pt if pain can be controlled, he can tolerate PO, will dc with oral ab and fup gen surg clinic for sono and consideration of jnuo after infection resolved pt and OK with this plan - Sepsis Event Vital Signs: Vital Signs - 24 hr 03/14/18 03/14/18 16:18 18:29 Temperature 37 C 37.2 C Heart Rate 69 69 Respiratory 20 16 Rate Blood Pressure 126/59 L 125/62 O2 Saturation 97 98 Oxygen O2 Source Room air Departure - Departure Disposition: Home, Self Care Clinical Impression: Cholecystitis Condition: Good Instructions: ED Gallbladder Infec Conf Follow-Up: Sarah Guevara MD [Primary Care Provider] - Frankie Barnett MD [Provider Admit Priv/Credential] - (call to schedule followup for further evaluation of your gallbladder) Prescriptions: Amox/Clav 875/125 [Augmentin] 1 each PO Q12H #20 tablet oxyCODONE [Roxicodone] 5 mg PO Q6H #10 tablet Comments: Your appendix is fine. But it looks like your gallbladder is infected. The blood work also suggests a gallbladder infection. Since you pain is manageable and you are not vomiting and are able to keep medications food and fluids down, I think it is OK for you to go home on oral antibiotics and follow up at out surgery clinic. Please stay on a low fat diet (the gallbladder's function is to help digest fats ), take the antibiotics as directed, pain medications only if needed for severe pain (do not want to mask worsening symptoms). Monitor your blood sugars carefully - infections tend to cause your blood sugar to run high - you were over 200 today but we gave you IV fluids to help bring it down Return to the ER if worse and not doing well at home.
[2018-03-14] MEDS ORDERED: IOPAMIDOL-300 100 ML VIAL ONE (16:34)
[2018-03-14] MEDS ORDERED: SODIUM CHLORIDE 0.9% 1,000 ML IV ONE (16:49)
[2018-03-14] MEDS ORDERED: ACETAMINOPHEN 1,000 MG/100 ML 100 ML IV STA (16:49)
[2018-03-14 17:19] LABS: BASOPHILS % (AUTO) 0.4 %; EOSINOPHILS % (AUTO) 0.1 %; HGB - HEMOGLOBIN 14.5 g/dL (14.0-18.0); LYMPHOCYTES # (AUTO) 0.9 10^3/uL (1.5-3.5); LYMPHOCYTES % (AUTO) 7.5 %; MEAN CORPUSCULAR HEMOGLOBIN 33.1 pg (27.0-31.0); MEAN CORPUSCULAR HGB CONC 34.4 g/dL (32.0-36.0); MEAN CORPUSCULAR VOLUME 96.2 fL (80.0-94.0); MEAN PLATELET VOLUME 8.5 fL (7.4-11.4); MONOCYTES # (AUTO) 0.9 10^3/uL (0.0-1.0); MONOCYTES % (AUTO) 7.4 %; NEUTROPHILS # (AUTO) 10.1 10^3/uL (1.5-6.6); NEUTROPHILS % (AUTO) 84.6 %; PLT - PLATELET COUNT 187 10^3/uL (130-450); RED BLOOD COUNT 4.39 10^6/uL (4.70-6.10); RED CELL DISTRIBUTION WIDTH 13.5 % (12.0-15.0)
[2018-03-14 17:43] LABS: ALBUMIN 3.9 g/dL (3.2-5.5); ALBUMIN/GLOBULIN RATIO 1.3 (1.0-2.2); BILIRUBIN,TOTAL 1.3 mg/dL (0.2-1.0); CALCIUM 8.9 mg/dL (8.5-10.3); CREATININE 0.9 mg/dL (0.6-1.2); TOTAL PROTEIN 6.8 g/dL (6.7-8.2)
[2018-03-14] MEDS ORDERED: IOPAMIDOL-300 100 ML VIAL IVP ONE (18:05)
--- NOTE | 2018-03-14 18:18 | CT Report ---
Reason: rlq pain Procedure Date: 03/14/2018 Accession Number: [id number] / [id number] Procedure: CT - Abdomen/Pelvis W/ CPT Code: FULL RESULT: EXAM: CT ABDOMEN AND PELVIS EXAM DATE: 03/14/2018 06:03 PM. CLINICAL HISTORY: Rlq pain. COMPARISONS: None. TECHNIQUE: Routine helical CT imaging was performed through the abdomen and pelvis. IV contrast: 100 ML ISOVUE 300. Enteric contrast: No. Reconstructions: Coronal and sagittal. In accordance with CT protocol optimization, one or more of the following dose reduction techniques were utilized for this exam: automated exposure control, adjustment of mA and/or KV based on patient size, or use of iterative reconstructive technique. FINDINGS: Lung Bases: There are moderate reticular coarse bilateral lower lobe pulmonary densities without pleural effusion. Liver: Normal. No masses. Gallbladder/Bile Ducts: The wall of the gallbladder appears somewhat ill-defined. The gallbladder measures 4.6 cm in diameter. No calcified gallstones. Common bile duct is normal in size. Spleen: Normal. Pancreas: Normal. Adrenal Glands: Normal. Kidneys: Normal. No masses or hydronephrosis. Peritoneal Cavity/Bowel: There is fecalization of small bowel. There is mild small bowel dilation without a discrete transition zone. There is increased stool in the right colon. No free fluid or abscess. The appendix is well visualized and normal. Pelvic Organs: There are surgical clips in the pelvis. The urinary bladder appears unremarkable. Vasculature: No aneurysms or other significant abnormality. Bones: No significant abnormality. Other: None. IMPRESSION: 1. No evidence of acute appendicitis. 2. The gallbladder appears mildly distended with an irregular wall, raising possibility of acute cholecystitis. Correlate with clinical exam and ultrasound may be of utility. 3. No biliary dilatation. 4. Increased stool in the right colon with mild small bowel dilation raising possibility of ileus. RADIA
[2018-03-14] MEDS ORDERED: oxyCODONE 5 MG TABLET PO STA (18:54)
[2018-03-14] MEDS ORDERED: AMPICILLIN/SULBACTAM 3 GM in SODIUM CHLORIDE 0.9% MINIBAG 100 ML IV STA (18:55)
[2018-03-14 19:35] VITALS: BP 139/65
== END 2018-03-14 19:40 | disposition home or self-care (01) ==
LOC: EDUNIT# → ED 16:15
DX: K81.9 Cholecystitis, unspecified (principal); K29.70 Gastritis, unspecified, without bleeding; R00.1 Bradycardia, unspecified; I10 Essential (primary) hypertension; E78.00 Pure hypercholesterolemia, unspecified; E10.9 Type 1 diabetes mellitus without complications; Z96.659 Presence of unspecified artificial knee joint; Z90.79 Acquired absence of other genital organ(s); Z87.891 Personal history of nicotine dependence
CPT/HCPCS: 36415; 71045; 74177; 80053; 81003; 83690; 85025; 85379; 93005; 96365; 96367; 96375; 99283; 99284; A9270; J0131; Q0162; Q9967; 81001; 87086

== ENCOUNTER 2021-09-08 08:00 | Outpatient (CLI) | payer MEDICARE, BC ==
--- NOTE | 2021-09-08 15:17 | XRAY Report ---
PROCEDURE: Chest 2 View X-Ray INDICATIONS: LEFT CHEST PAIN TECHNIQUE: 2 view(s) of the chest. COMPARISON: Chest x-ray 07/04/2017 FINDINGS: Surgical changes and devices: None. Lungs and pleura: No pleural effusions or pneumothorax. Lungs are clear. Mediastinum: Mediastinal contours are normal. Heart size is normal. Bones and chest wall: No suspicious bony abnormalities. Soft tissues appear unremarkable. IMPRESSION: No acute pulmonary process. Reviewed by: Brea Mandujano MD on 09/08/2021 3:16 PM PST Approved by: Brea Mandujano MD on 09/08/2021 3:16 PM PST Station ID: [id number]
== END 2021-09-08 23:59 | disposition home or self-care (01) ==
LOC: DI.S 08:00
PROVIDERS: ATTEND Physician Assistant
DX: R07.89 Other chest pain (principal)

== ENCOUNTER 2023-09-10 08:00 | Outpatient (CLI) | payer MEDICARE, BC ==
--- NOTE | 2023-09-10 16:20 | XRAY Report ---
PROCEDURE: Chest 2V INDICATIONS: PRODUCTIVE COUGH TECHNIQUE: 2 views of the chest were acquired. COMPARISON: 03/14/2018 FINDINGS: Surgical changes and devices: None. Lungs and pleura: No pleural effusions or pneumothorax. Lungs are clear. Mediastinum: Mediastinal contours appear normal. Heart size is normal. Bones and chest wall: No suspicious bony lesions. Overlying soft tissues appear unremarkable. IMPRESSION: No acute cardiopulmonary process. No focal consolidation. Reviewed by: Marcio Perdue MD on 09/10/2023 4:18 PM PST Approved by: Marcio Perdue MD on 09/10/2023 4:18 PM PST Station ID: [id number]
== END 2023-09-10 23:59 | disposition home or self-care (01) ==
LOC: DI.S 08:00
PROVIDERS: ATTEND Emergency Medicine
DX: R05.8 Other specified cough (principal)